=== PATIENT | male | born 1990 | race African-American/Black ===

== ENCOUNTER 2018-03-07 13:11 | Emergency (ER) | payer SELFPAY ==
[~2018-03-07] VITALS: Ht 193 cm; Wt 83.5 kg
[~2018-03-07 13:11] MED LIST: PHEN100C70 OR
[2018-03-07 14:19] LABS: Basophils # (auto) 0 uL; Basophils % (auto) 0.7 % (0.0-2.0); Eosinophils # (auto) 0.3 uL; Eosinophils % (auto) 6.4 % (0.0-7.0); Hematocrit 43.2 % (41.0-53.0); Hemoglobin 14.7 g/dL (13.5-17.5); Lymphocytes # (auto) 1.8 uL; Lymphocytes % (auto) 39.2 % (10.0-50.0); Mean Corpuscular Hemoglobin 30.7 pg (28.0-32.0); Mean Corpuscular Volume 90.5 fL (80.0-100.0); Monocytes # (auto) 0.4 uL; Monocytes % (auto) 8.9 % (0.0-12.0); Neutrophils # (auto) 2.1 uL; Neutrophils % (auto) 44.8 % (37.0-80.0); Nucleated Red Blood Cells % 0.1 %; Platelet Count (auto) 310 10^3/uL (140-450); Red Blood Cells 4.77 10^6/uL (4.5-5.90); Red Cell Distribution Width 14.1 % (11.8-14.3); White Blood Cell 4.7 10^3/uL (4.4-10.8)
[2018-03-07 14:30] LABS: Albumin 3.9 g/dL (3.4-5.0); Anion Gap 9 (5-15); Aspartate Aminotransferase 36 U/L (15-37); BUN/Creatinine Ratio 6.7; Blood Alcohol < 3.0 mg/dL (0-5); Blood Urea Nitrogen 7 mg/dL (7-18); Calcium 8.5 mg/dL (8.5-10.1); Carbon Dioxide 23 mmol/L (21-32); Chloride 108 mmol/L (98-107); GFR African American 107 mL/min; GFR Non-African American 89 mL/min; Glucose 81 mg/dL (74-106); Potassium 4.1 mmol/L (3.5-5.1); Sodium 140 mmol/L (136-145)
[2018-03-07 14:53] LABS: Alanine Aminotransferase 59 U/L (16-61); Alkaline Phosphatase 57 U/L (45-117); Bilirubin, Total 0.4 mg/dL (0.2-1.0)
[2018-03-07 15:03] LABS: Alcohol, Urine < 3.0 mg/dL (0-5); Amphetamine Screen, Urine NEGATIVE (NEGATIVE); Barbiturate Scree,Urine NEGATIVE (NEGATIVE); Benzodiazephine Screen, Urine NEGATIVE (NEGATIVE); Cannabinoid Screen, Urine POSITIVE (NEGATIVE); Cocaine Screen, Urine NEGATIVE (NEGATIVE); Opiate Scree,Urine NEGATIVE (NEGATIVE); Phencyclidine Screen, Urine NEGATIVE (NEGATIVE)
[2018-03-07 17:12] VITALS: BP 129/76
== END 2018-03-07 17:15 | disposition home or self-care (01) ==
LOC: EDUNIT# 13:14 → ER 13:14 → EDBD 13:14 → ER 17:15
DX: R56.9 Unspecified convulsions (principal); K21.9 Gastro-esophageal reflux disease without esophagitis; F17.210 Nicotine dependence, cigarettes, uncomplicated; F12.10 Cannabis abuse, uncomplicated
CPT/HCPCS: 36415; 80053; 80307; 80320; 85025; 94761

== ENCOUNTER 2021-10-11 13:13 | Emergency (ER) | payer MEDICAID ==
[~2021-10-11] VITALS: Ht 195.6 cm; Wt 113.4 kg
[~2021-10-11 13:13] MED LIST changes: +PHEN100C OR; -PHEN100C70 OR
[2021-10-11 16:31] VITALS: BP 109/68
[2021-10-11] MEDS ORDERED: CEPH-509 PO (18:40)
[2021-10-11] MEDS ORDERED: ACET-1158 PO (18:40)
[2021-10-11] MEDS ORDERED: TETANUS-DIPTH-ACEL PERTUSSIS 0.5ML SYR Tdap IM ONE (18:45)
[2021-10-11] MEDS ORDERED: ACETAMINOPHEN 325 MG TAB PO ONE (18:45)
== END 2021-10-11 18:51 | disposition home or self-care (01) ==
LOC: ER 13:13
DX: S01.111A Laceration without foreign body of right eyelid and periocular area, initial encounter (principal); K21.9 Gastro-esophageal reflux disease without esophagitis; F17.210 Nicotine dependence, cigarettes, uncomplicated; Z79.899 Other long term (current) drug therapy; W01.0XXA Fall on same level from slipping, tripping and stumbling without subsequent striking against object, initial encounter; Y93.89 Activity, other specified; Y92.89 Other specified places as the place of occurrence of the external cause; Y99.8 Other external cause status
CPT/HCPCS: 12011; 90471; 90715; 99283; J2001

== ENCOUNTER 2021-10-15 09:18 | Emergency (ER) | payer MEDICAID ==
[~2021-10-15] VITALS: Ht 193 cm; Wt 113.4 kg
[~2021-10-15 09:18] MED LIST changes: +ACET-1158 PO; +CEPH-509 PO
[2021-10-15 09:27] VITALS: BP 115/66
== END 2021-10-15 10:07 | disposition home or self-care (01) ==
LOC: ER 09:18
DX: S01.111D Laceration without foreign body of right eyelid and periocular area, subsequent encounter (principal); X58.XXXD Exposure to other specified factors, subsequent encounter

== ENCOUNTER 2022-05-22 11:10 | Emergency (ER) | payer MEDICAID ==
[~2022-05-22] VITALS: Ht 195.6 cm; Wt 110.0 kg
[2022-05-22 11:17] VITALS: BP 128/69
[2022-05-22 13:20] LABS: Basophils # (auto) 0 10 ^3/uL (0-0.2); Basophils % (auto) 0.5 % (0.0-2.0); Eosinophils # (auto) 0.2 10 ^3/uL (0-0.8); Eosinophils % (auto) 2.4 % (0.0-7.0); Hematocrit 42.7 % (41.0-53.0); Hemoglobin 14.6 g/dL (13.5-17.5); Lymphocytes # (auto) 0.9 10 ^3/uL (0.4-5.4); Lymphocytes % (auto) 11.1 % (10.0-50.0); Mean Corpuscular Hemoglobin 29.5 pg (28.0-32.0); Mean Corpuscular Hgb Conc. 34.1 g/dL (32.0-36.0); Mean Corpuscular Volume 86.4 fL (80.0-100.0); Monocytes # (auto) 0.4 10 ^3/uL (0-1.3); Monocytes % (auto) 5.2 % (0.0-12.0); Neutrophils # (auto) 6.2 10 ^3/uL (1.6-8.6); Neutrophils % (auto) 80.8 % (37.0-80.0); Red Blood Cells 4.94 10^6/uL (4.5-5.90); Red Cell Distribution Width 14.3 % (11.8-14.3); White Blood Cell 7.7 10^3/uL (4.4-10.8)
[2022-05-22 13:34] LABS: Albumin 4.1 g/dL (3.4-5.0); BUN/Creatinine Ratio 9.7; Bilirubin, Total 0.6 mg/dL (0.2-1.0); Calcium 9.2 mg/dL (8.5-10.1); Potassium 3.9 mmol/L (3.5-5.1); Total Protein 7.6 g/dL (6.4-8.2)
[2022-05-22 15:56] LABS: Urine Amorphous Crystal FEW /hpf (None Seen); Urine Bacteria NONE SEEN /hpf (None Seen); Urine Blood Negative /uL (Negative); Urine Mucus FEW (None Seen); Urine Specific Gravity 1.029 (1.001-1.035); Urine WBC 3 /hpf (0 - 3)
[2022-05-22] MEDS ORDERED: AZIT1POW PO (16:35)
[2022-05-22] MEDS ORDERED: METH4PAK PO (16:35)
== END 2022-05-22 18:52 | disposition home or self-care (01) ==
LOC: ER 11:10
DX: R07.89 Other chest pain (principal); J20.9 Acute bronchitis, unspecified; F12.10 Cannabis abuse, uncomplicated; F17.200 Nicotine dependence, unspecified, uncomplicated; Z20.822 Contact with and (suspected) exposure to COVID-19
CPT/HCPCS: 36415; 71046; 80053; 81001; 85025; 87426; 87804; 93005

== ENCOUNTER 2023-08-08 14:13 | Emergency (ER) | payer MEDICAID ==
[~2023-08-08] VITALS: Ht 195.6 cm; Wt 112.4 kg
[~2023-08-08 14:13] MED LIST changes: -ACET-1158 PO; +ACET500T58 PO; +AZIT1POW PO; +METH4PAK PO
[2023-08-08] MEDS ORDERED: IBUP-1455 PO (16:10)
[2023-08-08] MEDS ORDERED: HYDR-4902 PO (16:10)
[2023-08-08] MEDS: HYDROcodone-ACET 10/325MG TAB PO ONE (16:57)
[2023-08-08 17:06] VITALS: BP 115/61; PULSE 93; RESP 17; TEMP 97.7; O2SAT 99
== END 2023-08-08 17:07 | disposition home or self-care (01) ==
LOC: ER 14:13
DX: S16.1XXA Strain of muscle, fascia and tendon at neck level, initial encounter (principal); S39.012A Strain of muscle, fascia and tendon of lower back, initial encounter; S93.402A Sprain of unspecified ligament of left ankle, initial encounter; S20.212A Contusion of left front wall of thorax, initial encounter; S90.31XA Contusion of right foot, initial encounter; V43.52XA Car driver injured in collision with other type car in traffic accident, initial encounter; Y93.89 Activity, other specified; Y92.488 Other paved roadways as the place of occurrence of the external cause; Y99.8 Other external cause status
CPT/HCPCS: 71101; 72040; 72100; 73610; 73630